=== PATIENT | female | born 1995 | race Caucasian/White ===

== ENCOUNTER 2022-07-09 23:47 | Emergency (ER) | payer BC ==
[2022-07-09] MEDS ORDERED: Ondansetron 4 MG/2 ML SDV IVPUSH ONE (23:57)
[2022-07-09] MEDS ORDERED: Sodium Chloride 0.9% 1,000 ML IV ONE (23:58)
[2022-07-10] MEDS ORDERED: Sodium Chloride 0.9% 1,000 ML IV ONE ×3 (00:49→03:00)
[2022-07-10 01:00] LABS: ANION GAP 17.7 meq/L (7-15)
[2022-07-10 01:04] LABS: CORONAVIRUS COVID-19 NAA NEGATIVE (NEGATIVE); RESPIRATORY SYNCYTIAL VIR NAA NEGATIVE (NEGATIVE)
[2022-07-10] MEDS ORDERED: Morphine 2 MG/ML SYRINGE IVPUSH PRN (01:12)
[2022-07-10] MEDS: Potassium Chloride Riders 10 MEQ in Premix Bag 1 BAG IV SCH ×3 (01:24→03:38)
[2022-07-10] MEDS ORDERED: Magnesium Sulfate/Water 4 GM in Premix Bag 1 BAG IV ONE (01:26)
[2022-07-10] MEDS ORDERED: Loperamide 2 MG Tab PO ONE (01:33)
[2022-07-10] MEDS ORDERED: Loperamide 2 MG Tab PO PRN (01:34)
[2022-07-10] MEDS ORDERED: Potassium Bicarbonate/Cit Ac 20 MEQ Effervescent Tab PO ONE ×2 (03:00→05:00)
[2022-07-10] MEDS ORDERED: Ondansetron 4 MG/2 ML SDV IVPUSH ONE (07:53)
[2022-07-10] MEDS ORDERED: Ondansetron 4 MG/2 ML SDV ONE (07:54)
[2022-07-10 08:21] LABS: ANION GAP 17.2 meq/L (7-15)
[2022-07-10] MEDS ORDERED: Pantoprazole 40 MG Vial IVPUSH ONE (08:35)
[2022-07-10] MEDS ORDERED: cefTRIAXone 2 GM in Sodium Chloride 0.9% 100 ML IV ONE (08:42)
[2022-07-10] MEDS ORDERED: Norepinephrine Bit/D5W Premix 250 ML IV SCH (08:45)
[2022-07-10] MEDS: Sodium Chloride 0.9% 10 ML Syringe FLUSH PRN ×2 (08:46→10:50)
[2022-07-10] MEDS ORDERED: Sodium Chloride 0.9% 1,000 ML IV SCH (08:55)
[2022-07-10] MEDS ORDERED: fentaNYL 50 MCG/ML SDV IVPUSH ONE (09:44)
[2022-07-10] MEDS ORDERED: fentaNYL 100 MCG/2 ML SDV IVPUSH ONE (10:20)
[2022-07-10] MEDS ORDERED: Piperacillin/Tazobactam 3.375 GM in Sodium Chloride 0.9% 100 ML IV ONE (10:41)
[2022-07-10] MEDS ORDERED: Acetaminophen 500 MG Tab PO ONE (11:44)
[2022-07-10] MEDS ORDERED: Acetaminophen 500 MG Tab ONE (11:45)
== END 2022-07-10 11:50 ==
LOC: LL.ED 23:47
DX: N73.9 Female pelvic inflammatory disease, unspecified (principal); Z72.0 Tobacco use; Z20.822 Contact with and (suspected) exposure to COVID-19
CPT/HCPCS: 0241U; 36415; 51702; 74019; 74176; 80048; 80053; 81001; 83605; 83735; 84703; 85025; 87040; 87086; 87088; 87186; 96361; 96365; 96366; 96367; 96368; 96375; 96376; 99284-25; A9270-GY; C9113; J0696; J2405; J2543; J3010; J3475; J3480; J3490; J7030